=== PATIENT | female | born 1950 | race Caucasian/White ===

== ENCOUNTER 2020-08-16 11:11 | Outpatient (CLI) | payer MEDICARE | END 2020-08-16 11:12 | disposition home or self-care (01) | LOC: BICMAMMO 11:11 | PROVIDERS: ATTEND Physician Assistant | DX: Z12.31 Encounter for screening mammogram for malignant neoplasm of breast (principal) | CPT/HCPCS: 77063; 77067 ==

== ENCOUNTER 2021-02-21 13:16 | Outpatient (CLI) | payer MEDICARE | END 2021-02-21 13:17 | disposition home or self-care (01) | LOC: BICMAMMO 13:16 | PROVIDERS: ATTEND Family Medicine | DX: Z13.820 Encounter for screening for osteoporosis (principal); Z78.0 Asymptomatic menopausal state | CPT/HCPCS: 77080 ==

== ENCOUNTER 2021-09-15 13:30 | Outpatient (CLI) | payer MEDICARE | END 2021-09-15 13:31 | disposition home or self-care (01) | LOC: BICMAMMO 13:30 | PROVIDERS: ATTEND Family Medicine | DX: Z12.31 Encounter for screening mammogram for malignant neoplasm of breast (principal); Z80.3 Family history of malignant neoplasm of breast | CPT/HCPCS: 77063; 77067 ==

== ENCOUNTER 2023-12-23 10:58 | Outpatient (CLI) | payer OTHER | END 2023-12-23 10:59 | disposition home or self-care (01) | LOC: BICMAMMO 10:58 | PROVIDERS: ATTEND Family Medicine | DX: Z12.31 Encounter for screening mammogram for malignant neoplasm of breast (principal); N63.10 Unspecified lump in the right breast, unspecified quadrant; Z80.3 Family history of malignant neoplasm of breast | CPT/HCPCS: 77063; 77067 ==

== ENCOUNTER 2023-12-27 08:20 | Outpatient (CLI) | payer OTHER | END 2023-12-27 08:21 | disposition home or self-care (01) | LOC: BICMAMMO 08:20 | PROVIDERS: ATTEND Family Medicine | DX: N63.12 Unspecified lump in the right breast, upper inner quadrant (principal); N64.89 Other specified disorders of breast | CPT/HCPCS: 76642; 77066; G0279 ==

== ENCOUNTER → 2024-01-03 | Day surgery (SDC) | payer OTHER | LOC: BICULT 12:32 | PROVIDERS: ATTEND Family Medicine | PROC: 0H95XZX Drainage of Chest Skin, External Approach, Diagnostic (ICD-10-PCS; principal; 2024-01-03) | DX: C50.211 Malignant neoplasm of upper-inner quadrant of right female breast (principal) | CPT/HCPCS: 19083; 88305; 88342 ==

== ENCOUNTER 2024-01-27 07:45 | Outpatient (CLI) | payer OTHER ==
[2024-01-27 09:26] LABS: #Eosinphils 0.2 10x3/uL (0.0-0.5); #Monocytes 0.3 10x3/uL (0.0-1.1); #Neutrophils 1.5 10x3/uL (1.5-8.4); %Basophils 1.1 % (0.0-2.0); %Eosinophils 6.9 % (0.0-6.0); %Lymphocytes 24.8 % (18.0-47.0); %Monocytes 11.3 % (0.0-10.0); %Neutrophils 55.5 % (40.0-75.0); Hematocrit 38.9 % (34.9-44.5); Hemoglobin 13.4 g/dL (12.0-15.5); Mean Corpuscular HGB CONC 34.4 g/dL (32.0-36.0); Mean Corpuscular Hemoglobin 31.2 pg (27.0-33.0); Mean Corpuscular Volume 90.5 fl (81.6-98.3); Mean Platelet Volume 10.1 fl (7.4-10.4); Platelet Count 88 10x3/uL (150-450); RBC Distribution Width 13.8 % (11.5-14.5); White Blood Cell (WBC) Count 2.7 10x3/uL (3.5-10.5)
[2024-01-27 10:09] LABS: Anion Gap 13 mmol/L (10-20); BUN (Urea Nitrogen) 15 mg/dL (9.8-20.1); Calc. Creatinine Clearance 0 mL/min (70-130); Calcium 9.5 mg/dL (7.8-10.44); Carbon Dioxide 24 mmol/L (23-31); Chloride 104 mmol/L (98-107); Estimated GFR 82; Glucose 206 mg/dL (83-110); Potassium 4.5 mmol/L (3.5-5.1); Sodium 136 mmol/L (136-145)
[2024-01-27 13:05] LABS: Hemoglobin A1c 7.5 % (4.0-6.0)
== END 2024-01-27 07:46 | disposition home or self-care (01) ==
LOC: LABBT 07:45
PROVIDERS: ATTEND Specialist
DX: Z01.818 Encounter for other preprocedural examination (principal); C50.911 Malignant neoplasm of unspecified site of right female breast
CPT/HCPCS: 71046; 80048; 83036; 85025; 93005; 93010

== ENCOUNTER 2024-02-01 08:13 | Day surgery (SDC) | payer OTHER ==
[2024-01-27 08:34] VITALS: BMI 38.6
[2024-02-01] MEDS ORDERED: Isosulfan Blue 50 MG/5 ML VIAL ONE (09:34)
[2024-02-01] MEDS ORDERED: EPINEPHrine 1 MG/ML VIAL ONE (09:34)
[2024-02-01] MEDS ORDERED: Bupivacaine 0.25% HCL 30 ML VIAL ONE (09:34)
[2024-02-01] MEDS ORDERED: PROPOFOL 20 ML ONE (09:44)
[2024-02-01] MEDS ORDERED: Ondansetron PF 4 MG/2 ML Vial ONE (09:44)
[2024-02-01] MEDS ORDERED: fentaNYL 50 mcg/mL 1 mL Vial ONE (09:44)
[2024-02-01] MEDS ORDERED: Dexamethasone 4 mg/ml Vial ONE (09:44)
[2024-02-01] MEDS ORDERED: Lidocaine 1% PF 5 ML VIAL ONE (09:44)
[2024-02-01] MEDS ORDERED: CEFAZOLIN 2 GM VIAL ONE (09:48)
[2024-02-01] MEDS ORDERED: Sodium Chloride 0.9% 100 ML ONE (09:48)
[2024-02-01] MEDS ORDERED: Acetaminophen 500 MG TAB ONE (09:48)
[2024-02-01] MEDS ORDERED: Ketorolac Tromethamine 30 MG (1 mL) VIAL ONE (09:48)
[2024-02-01] MEDS ORDERED: Lidocaine 2% PF 5 ML VIAL ONE (09:55)
[2024-02-01] MEDS ORDERED: ePHEDrine Sulfate 50 MG/10 ML VIAL ONE (10:49)
== END 2024-02-01 13:45 | disposition home or self-care (01) ==
LOC: SDC 08:13
PROVIDERS: ATTEND Specialist
PROC: 0HBT0ZZ Excision of Right Breast, Open Approach (ICD-10-PCS; principal; 2024-02-01)
PROC: 07B50ZZ Excision of Right Axillary Lymphatic, Open Approach (ICD-10-PCS; 2024-02-01)
PROC: C71LYZZ Planar Nuclear Medicine Imaging of Upper Chest Lymphatics using Other Radionuclide (ICD-10-PCS; 2024-02-01)
DX: C50.211 Malignant neoplasm of upper-inner quadrant of right female breast (principal); Z17.0 Estrogen receptor positive status [ER+]; R73.03 Prediabetes; Z90.89 Acquired absence of other organs; Z91.041 Radiographic dye allergy status; Z79.84 Long term (current) use of oral hypoglycemic drugs
CPT/HCPCS: 19301; 38525; 38900; 76098; 78195; A9541; C1713; J0171; Q9968; 88307; 88342; J0665; J1100; J1885; J2001; J2405; J2704; J3010; J3490

== ENCOUNTER 2024-05-26 08:45 | Outpatient (CLI) | payer MEDICARE, OTHER | END 2024-05-26 08:46 | disposition home or self-care (01) | LOC: BICMAMMO 08:45 | PROVIDERS: ATTEND Internal Medicine Hematology & Oncology | DX: Z13.820 Encounter for screening for osteoporosis (principal); C50.811 Malignant neoplasm of overlapping sites of right female breast | CPT/HCPCS: 77080 ==

== ENCOUNTER 2025-08-10 14:01 | Outpatient (CLI) | payer MEDICARE | END 2025-08-10 14:02 | disposition home or self-care (01) | LOC: BICMAMMO 14:01 | PROVIDERS: ATTEND Internal Medicine Hematology & Oncology | DX: M85.88 Other specified disorders of bone density and structure, other site (principal); C50.811 Malignant neoplasm of overlapping sites of right female breast; M81.0 Age-related osteoporosis without current pathological fracture; Z79.818 Long term (current) use of other agents affecting estrogen receptors and estrogen levels | CPT/HCPCS: 77080 ==